=== PATIENT | female | born 1945 | race Caucasian/White ===

== ENCOUNTER 2019-07-22 09:56 | Emergency (ER) | payer MEDICARE, OTHER, SELFPAY ==
[2019-07-22 10:03] VITALS: BP 170/92; PULSE 104; RESP 18; TEMP 36.5; O2SAT 100
--- NOTE | 2019-07-22 10:18 | ED_ITS ---
HPI - General Adult General Chief complaint: Abdominal Pain Stated complaint: LEFT LOWER ABDOMINAL PAIN Time Seen by Provider: 07/22/19 10:13 Source: patient Mode of arrival: Ambulatory Limitations: no limitations History of Present Illness HPI narrative: 74-year-old female here for evaluation of left lower quadrant abdominal pain. Patient states that it started last evening. Was after she stood up after sitting on the couch watching TV. It did improve somewhat after she was walking around. No vomiting. No urinary symptoms. Did have some diarrhea this morning. No blood in the stool. Never been diagnosed with diverticulitis. No prior abdominal surgeries. Has not tried anything for symptoms prior to arrival. Related Data Allergies Allergy/AdvReac Type Severity Reaction Status Date / Time No Known Drug Allergies Allergy Verified 07/22/19 10:06 Review of Systems Constitutional Constitutional: Denies fever(s) and Denies headache(s) ENT Ears, Nose, Mouth, and Throat: Denies headache(s) Cardiovascular Cardiovascular: Denies chest pain and Denies dyspnea Respiratory Respiratory: Denies dyspnea Gastrointestinal Gastrointestinal: Reports abdominal pain, Reports diarrhea, Denies nausea and Denies vomiting Genitourinary Genitourinary: Denies dysuria and Denies vaginal discharge Musculoskeletal Musculoskeletal: Denies myalgias and Denies arthralgias Integumentary/Breasts Skin/Breast: Denies lesions and Denies rash Neurologic Neurologic: Denies behavioral changes and Denies headache(s) Psychiatric Psychiatric: Denies behavioral changes Hematologic/Lymphatic Hematologic/Lymphatic: Denies easy bleeding and Denies easy bruising Patient History Medical History Diabetes (Acute) Social History Smoking Status: Never smoker Smoking Status: Never smoker alcohol intake frequency: 0-2 drinks per day Substance Use Type: does not use Exam Initial Vital Signs Initial Vital Signs: Vital Signs Temperature 97.7 F 07/22/19 10:03 Pulse Rate 104 H 07/22/19 10:03 Respiratory Rate 18 07/22/19 10:03 Blood Pressure 170/92 H 07/22/19 10:03 Pulse Oximetry 100 07/22/19 10:03 Const General: cooperative, comfortable and well developed Limitations: mental status not altered HENOH Head: normal to inspection and normocephalic Resp Effort & Inspection: normal respiratory effort Auscultation: clear to auscultation bilaterally Cardio Rate: regular rate Rhythm: regular rhythm GI Inspection: non-distended Palpation: soft, No firm and No tender Other: No tenderness to palpation on the abdomen during my exam Back/Spine/Pelvis Back: No CVA tenderness Skin Lesions: no lesions Rashes: no rashes Neuro General: alert and awake Cognition: normal cognition Speech: speech normal Extrem General: normal to inspection and capillary refill normal Psych Appearance: grossly normal and well kempt Course Orders Ordered: ED Orders 07/22/19 10:10 Complete Blood Count AUTO DIFF Stat Comprehensive Metabolic Panel Stat Lipase Stat Partial Thromboplastin Time Stat Prothrombin Time INR Stat 07/22/19 10:19 CT abdomen pelvis w con Stat Sodium Chloride (Normal Saline 0.9%) 1,000 mls @ 1,000 mls/hr IV BOLUS ONE Stop: 07/22/19 11:19 Last Admin: 07/22/19 11:12 Dose: 1,000 mls/hr Documented by: SASHA Vital Signs Vital signs: Vital Signs - 8 hr 07/22/19 10:03 Temperature 97.7 F Pulse Rate 104 H Respiratory Rate 18 Blood Pressure 170/92 H Pulse Oximetry 100 Medical Decision Making Lab Data Lab results reviewed: Yes I reviewed the patient's lab results. Result diagrams: 07/22/19 10:10 07/22/19 10:10 Labs: Lab Results 07/22/19 07/22/19 07/22/19 Range/Units 10:10 10:10 10:10 WBC 9.8 (4.5-11.0) X10^3/uL RBC 5.21 H (4.0-5.2) X10^6/uL Hgb 16.0 (12.0-16.0) g/dL Hct 47.8 H (36-46) % MCV 91.8 (80-100) fL MCH 30.8 (26-34) PG MCHC 33.5 (30-36) % RDW 14.3 (11.6-14.8) % Plt Count 341 (150-400) X10^3/uL Neut % (Auto) 52.9 (50-75) % Lymph % (Auto) 36.0 (25-40) % Monroe % (Auto) 7.6 (3-14) % Eos % (Auto) 2.4 (2-4) % Baso % (Auto) 1.1 (0-2) % Neut # (Auto) 5200 (9942-7349) /uL Lymph # (Auto) 3500 (3751-5295) /uL Monroe # (Auto) 700 (0-900) /uL Eos # (Auto) 200 (0-450) /uL Baso # (Auto) 100 (0-100) /uL PT 11.1 (10.1-12.7) SECONDS INR 1.0 (0.9-1.3) APTT 33 (26.4-36.2) SECONDS Sodium 140 (137-145) mmol/L Potassium 4.1 (3.4-5.1) mmol/L Chloride 104 (98-107) mmol/L Carbon Dioxide 25 (22-32) mmol/L BUN 20 H (7-17) mg/dL Creatinine 0.80 (0.52-1.04) mg/dL Estimated GFR > 60.0 (>60) mL/min BUN/Creatinine Ratio 25.0 H (6-22) Glucose 119 H (80-110) mg/dL Calcium 10.1 (8.4-10.2) mg/dL Total Bilirubin 0.6 (0.2-1.3) mg/dL AST 42 H (14-36) IU/L ALT 56 H (<35) IU/L Alkaline Phosphatase 73 (38-126) U/L Total Protein 8.5 H (6.3-8.2) g/dL Albumin 4.9 (3.5-5.0) g/dL Globulin 3.6 (1.7-4.1) g/dL Albumin/Globulin Ratio 1.4 (1.0-2.8) Lipase 324 H (23-300) U/L Imaging Data CT scan - abdomen/pelvis: Radiologist's Impression: [address] [address] [address] Scan Report Signed Patient: Socorro Israel DORAR#: [id number] : 3Acct:[id number] Age/Sex: 74 / FDate of Service: 07/22/19 Loc: ED Accession Number: [id number] Procedure: CT abdomen pelvis w con Ordering Provider: Delon Stoll D.O. PROCEDURE: CT ABDOMEN PELVIS W CON INDICATIONS: Left-sided abdominal pain TECHNIQUE: After the administration of intravenous contrast, 5 mm thick sections acquired from the diaphragm to the symphysis. 5 mm coronal and sagittal reformats were acquired. For radiation dose reduction, the following was used: automated exposure control, adjustment of mA and/or kV according to patient size. COMPARISON: None. FINDINGS: Image quality: Excellent. ABDOMEN: Lung bases: Lung bases are clear. Heart size is normal. Solid organs: Liver is normal in size and enhancement. Gallbladder is within normal limits. Biliary system is non dilated. Pancreas enhances normally. Spleen is normal in size and enhancement. No adrenal nodules. Kidneys demonstrate normal size and enhancement, without hydronephrosis. Peritoneum and bowel: Bowel loops demonstrate normal wall thickness and caliber. No free fluid or air. Normal appendix. Nodes and vessels: No retroperitoneal or mesenteric adenopathy by size criteri a. Aorta and inferior vena cava are normal in size. Miscellaneous: No ventral hernias. PELVIS: Genitourinary: Bladder wall thickness is normal. There is enhancing 43 mm diameter mass involving the left aspect of the uterine fundus. Miscellaneous: No inguinal hernias or adenopathy. Bones: No suspicious bony lesions. No vertebral body compression fractures. IMPRESSION: 1. No acute process. 2. Normal appendix. 3. Uterine fibroid. Dictated by: Sissy Lynn M.D. on 07/22/2019 at 9:54 Approved by: Sissy Lynn M.D. on 07/22/2019 at 9:56 [facility] Narrative Medical decision making narrative: Patient with a relatively benign abdominal exam. CT scan shows no signs of acute surgical or infectious pathology. She did have some diarrhea this morning. Will hold on any antibiotics. Will hold on any surgical consultation. Discussed this with the patient. She is tolerating oral intake. She was given return precautions and follow-up instructions. She expressed understanding and agreement with plan. Discharge Plan Departure Patient Disposition: Home Clinical Impression: Abdominal pain Qualifiers: Abdominal location: left lower quadrant Qualified Code(s): R10.32 - Left lower quadrant pain Instructions: DI for Abdominal Pain-Adult Activity Restrictions/Additional Instructions: Recommend that you increase your fluid intake. Contact your primary provider for follow-up. Return to the emergency department for any new or worsening symptoms Referrals: Naida Chaves ARNP [Primary Care Provider] -
[2019-07-22 10:20] LABS: Add Manual Diff / Slide Review NO; Basophils Absolute Auto 100 /uL (0-100); Basophils Percent Auto 1.1 % (0-2); Eosinophils Absolute Auto 200 /uL (0-450); Eosinophils Percent Auto 2.4 % (2-4); Hematocrit 47.8 % (36-46); Lymphocytes Absolute Auto 3500 /uL (1100-4500); Mean Corpuscular HGB Conc 33.5 % (30-36); Mean Corpuscular Hemoglobin 30.8 PG (26-34); Mean Corpuscular Volume 91.8 fL (80-100); Monocytes Absolute Auto 700 /uL (0-900); Monocytes Percent Auto 7.6 % (3-14); Neutrophils Absolute Auto 5200 /uL (1500-7000); Neutrophils Percent Auto 52.9 % (50-75); Platelet Count 341 X10^3/uL (150-400); Red Blood Cell Count 5.21 X10^6/uL (4.0-5.2); Red Cell Distribution Width 14.3 % (11.6-14.8); White Blood Cell Count 9.8 X10^3/uL (4.5-11.0)
[2019-07-22 10:29] LABS: Prothrombin Time 11.1 SECONDS (10.1-12.7)
[2019-07-22 10:30] LABS: PTT Partial Thromboplastin Tim 33 SECONDS (26.4-36.2)
[2019-07-22 10:33] LABS: Alanine Aminotransferase 56 IU/L (<35); Albumin 4.9 g/dL (3.5-5.0); Albumin Globulin Ratio 1.4 (1.0-2.8); Alkaline Phosphatase 73 U/L (38-126); Aspartate Aminotransferase 42 IU/L (14-36); Bilirubin Total 0.6 mg/dL (0.2-1.3); Blood Urea Nitrogen 20 mg/dL (7-17); Calcium 10.1 mg/dL (8.4-10.2); Carbon Dioxide 25 mmol/L (22-32); Chloride 104 mmol/L (98-107); Estimated Glomerular Filt Rate > 60.0 mL/min (>60); Globulin 3.6 g/dL (1.7-4.1); Glucose 119 mg/dL (80-110); HEMOLYSIS < 15 (0-50); Lipase 324 U/L (23-300); Potassium 4.1 mmol/L (3.4-5.1); Sodium 140 mmol/L (137-145); Total Protein 8.5 g/dL (6.3-8.2)
[2019-07-22] MEDS: SODIUM CHLORIDE 0.9% 1,000 ML 1000 ML IV (11:12)
[2019-07-22 11:46] VITALS: BP 119/70; PULSE 73; RESP 17; O2SAT 95
[2019-07-22 11:51] VITALS: BP 119/70; PULSE 73; O2SAT 95
== END 2019-07-22 11:53 | disposition home or self-care (01) ==
PROVIDERS: Emergency Provider Emergency Medicine; PCP Nurse Practitioner Gerontology
DX: R10.32 Left lower quadrant pain (principal); R19.7 Diarrhea, unspecified
CPT/HCPCS: 36415; 74177; 80053; 83690; 85025; 85610; 85730; 96360; 99284; Q9967

== ENCOUNTER → 2021-11-12 14:05 | Outpatient (CLI) | payer MEDICARE, OTHER, SELFPAY ==
--- NOTE | 2021-11-12 | DI.ECHO.S_ITS ---
[facility]---------+ [facility] +---------+ : : [address] : : : : [id number] : : : : Phone: [phone]+ Echocardiogram Report + + :Name: MARK GODFREY Study Date: 11/12/2021 Height: 62 in : :[facility] ReadingLocation: Weight: 176 lb : : Gender: Female BSA: 1.8 m2 : :: 1945 Age: 76 yrs BP: 118/76 mmHg: :Reason For Study: TRANSIENT CEREBRAL ISCHEMIC ATTACK : :Ordering Physician: ANASTASIA, : :PAM Performed By: Maki Garrison : :Referring: PAM OCONNOR : + + Interpretation Summary 1) Normal left ventricular thickness, size, wall motion, and systolic function (EF 60-65%). 2) Normal right ventricular size and function. 3) No significant valvular abnormalities. 4) Mild atherosclerotic plaque(s) in the aortic arch. 5) Compared t othe Echo done 01/26/2018, no significant change. Procedure: A two-dimensional transthoracic echocardiogram with color flow and Doppler was performed. The study quality was technically adequate. Comparison is made with the echocardiogram of 01/26/2018. The patient was in sinus rhythm with heart rates between 82-99 bpm during the exam. Left Ventricle: The left ventricle is normal in size and wall thickness. The ejection fraction is estimated to be 60-65%. Left ventricular systolic function appears normal without focal wall motion abnormalities. Right Ventricle: The right ventricle is normal in size and function. Atria: The left atrial size is normal. Right atrial size is normal. There is no Doppler evidence for an interatrial shunt. Mitral Valve: The mitral valve leaflets appear mildly thickened, but open well. There is mild mitral annular calcification. There is no mitral regurgitation noted. Aortic Valve: The aortic valve is trileaflet. The aortic valve opens well. There is no aortic valve stenosis. No aortic regurgitation is present. Tricuspid Valve: The tricuspid valve is normal in structure and function. There is trace tricuspid regurgitation. Pulmonary artery pressures cannot be estimated because of the lack of a measurable TR jet velocity. Pulmonic Valve: The pulmonic valve leaflets are thin and pliable; valve motion is normal. There is no pulmonic valvular regurgitation. Great Vessels: The aortic root is normal size. The dimensions of the ascending aorta are normal. Mild atherosclerotic plaque(s) in the aortic arch. The IVC is of normal diameter and collapses greater than 50% with a sniff. This suggests a low right atrial pressure of 3 mm Hg. Pericardium/ Pleura There is no pericardial effusion. There is no pleural effusion. MMode/2D Measurements & Calculations LVIDd: 3.9 cm LVOT diam: 1.9 cm LVIDs: 2.5 cm Ao root diam: 3.1 cm FS: 36.3 % asc Aorta Diam: 3.1 cm IVSd: 0.71 cm Ao Arch Diam (Prox Trans): 2.7 cm LVPWd: 0.85 cm LV arias. diameter/BSA (cm/m^2): 2.2 LV sys. diameter/BSA (cm/m^2): 1.4 LA A2 area: 18.4 cm2 RA long axis: 3.9 cm LA A4 area: 15.1 cm2 RA area: 10.2 cm2 LA length (vol): 4.7 cm RA vol: 22.6 ml LA vol: 50.2 ml RA : 12.5 ml/m2 LA vol index: 27.7 ml/m2 IVC diam: 0.86 cm RVD1 (basal): 3.3 cm RVD2 (mid): 3.2 cm TAPSE: 1.6 cm Doppler Measurements & Calculations Ao V2 max: 167.4 cm/sec LVOT Max Rupesh: 117.5 cm/sec Ao V2 mean: 113.6 cm/sec LV V1 max P.5 mmHg Ao max P.2 mmHg LV V1 VTI: 23.9 cm Ao mean P.8 mmHg LAISHA(I,D): 2.2 cm2 Ao V2 VTI: 30.8 cm LAISHA(V,D): 2.0 cm2 sev ratio: 0.78 LAISHA indexed to BSA (cm^2/m^2): 1.2 MV E max rupesh: 78.5 cm/sec PA V2 max: 87.9 cm/sec MV A max rupesh: 106.7 cm/sec PA V2 mean: 65.7 cm/sec MV E/A: 0.74 PA mean P.9 mmHg Med Peak E' Rupesh: 6.3 cm/sec PA pr(Accel): 32.8 mmHg E/E' med: 12.5 Lat Peak E' Rupesh: 8.4 cm/sec E/E' lat: 9.4 E/e' average: 10.9 MV dec time: 0.22 sec MVA(VTI): 3.1 cm2 MV V2 mean: 73.9 cm/sec SV(LVOT): 67.2 ml MV mean P.5 mmHg MV V2 VTI: 21.7 cm Reading Physician:04:26 PM
== END ==
PROVIDERS: PCP Internal Medicine; Referring Provider Internal Medicine; Visit Provider Internal Medicine
DX: G45.9 Transient cerebral ischemic attack, unspecified (principal); I70.0 Atherosclerosis of aorta
CPT/HCPCS: 93306